=== PATIENT | female | born 1990 | race Caucasian/White ===

== ENCOUNTER 2017-10-30 11:47 | Emergency (ER) | payer OTHER ==
[~2017-10-30 11:47] MED LIST: ISOVUE-370 76%-LOCM 1 ML ONE
[2017-10-30 12:16] LABS: #Eosinphils 0.1 thou/uL (0.0-0.7); #Lymphocytes 2.2 thou/uL (1.20-3.40); #Monocytes 0.6 thou/uL (0.11-0.59); #Neutrophils 8.9 thou/uL (1.40-6.50); %Basophils 0.1 % (0.0-1.0); %Lymphocytes 18.3 % (21.0-51.0); %Monocytes 5.3 % (0.0-10.0); %Neutrophils 75.3 % (42.0-75.0); Hemoglobin 13.5 g/dL (12.0-16.0); Mean Corpuscular Hemoglobin 31.9 pg (27.0-31.0); Mean Corpuscular Volume 91.3 fl (81.0-99.0); Mean Platelet Volume 7.2 fL (7.4-10.4); Platelet Count 215 thou/uL (130-400); RBC Distribution Width 11.1 % (11.5-14.5); Red Blood Cell (RBC) Count 4.23 mill/uL (4.20-5.40); White Blood Cell (WBC) Count 11.8 thou/uL (4.8-10.8)
[2017-10-30] MEDS ORDERED: Ondansetron HCl/PF 4 MG/2 ML Vial ONE (12:33)
[2017-10-30] MEDS ORDERED: Morphine 4 MG/ML VIAL ONE ×2 (12:33→15:48)
[2017-10-30 12:34] LABS: ALT (SGPT) 20 U/L (8-55); AST (SGOT) 26 U/L (5-34); Albumin 3.9 g/dL (3.5-5.0); Alkaline Phosphatase 64 U/L (40-150); Anion Gap 9 mmol/L (10-20); BHCG - Serum Negative (NEGATIVE); BUN (Urea Nitrogen) 11 mg/dL (7.0-18.7); Bilirubin, Total 0.4 mg/dL (0.2-1.2); Calc. Creatinine Clearance 0 mL/min (70-130); Calcium 8.6 mg/dL (7.8-10.44); Carbon Dioxide 26 mmol/L (22-29); Chloride 108 mmol/L (98-107); Estimated GFR-MDRD Greater than 90; Globulin 3.3 g/dL (2.4-3.5); Glucose 103 mg/dL (70-105); Lipase 29 U/L (8-78); Potassium 3.9 mmol/L (3.5-5.1); Pregs Control Bar Appear? YES (CONTROL BAR); Protein, Total 7.2 g/dL (6.0-8.3); Sodium 139 mmol/L (136-145)
[2017-10-30 12:35] LABS: Pregs Control Background? CLEAR/WHITE (CLR/WHITE)
--- NOTE | 2017-10-30 13:07 | RAD ---
1 VIEW CHEST: Date 10/30/17 HISTORY: Trauma. Patient fell off horse. COMPARISON: None. FINDINGS: Normal cardiac silhouette. Pulmonary hilum and vessels are normal. Costophrenic angles are clear. No pneumothorax on this supine projection. No osseous abnormalities. IMPRESSION: No acute cardiopulmonary process. POS: [facility]
--- NOTE | 2017-10-30 13:50 | CT ---
CT CERVICAL SPINE WITHOUT CONTRAST: Date: 10/30/17 HISTORY: Patient fell off horse. Post-traumatic pain. COMPARISON: None. FINDINGS: There is appropriate alignment of the atlanto-occipital articulation. There is appropriate alignment of the lateral masses of C1 and C2. Odontoid process is also intact. Sagittal reformatted images demonstrate straightening of normal cervical lordosis, which may be due t o patient positioning, muscle spasm, or cervical collar. Current study is not tailored to assess for ligamentous injury. There is no prevertebral soft tissue swelling or epidural hematoma. No significant central canal sten osis or foraminal narrowing. Evaluation is limited by technique. Visualized soft tissue neck structures, upper mediastinum, and lung apices are unremarkable. Cervical spine vertebral body height is maintained. No cervical spine fracture. Heterogeneous appearance of the thyroid gland. IMPRESSION: 1. No evidence of fracture. 2. Straightening of normal cervical lordosis. If there is concern for ligamentous injury, consider M RI. 3. Heterogeneous thyroid gland. Nonemergent thyroid ultrasound. Results of the head CT and cervical spine CT study discussed with Dr. Stark on 10/30/17 at 1255 hours . CODE CR. POS: [facility]
--- NOTE | 2017-10-30 14:23 | CT ---
CT BRAIN: Date; 10/30/17 PROVIDED CLINICAL HISTORY: Bucked off horse. FINDINGS: The ventricular system is normal in size and morphology. There is no evidence for intracranial hemorr damian or mass effect. The extracranial soft tissues and osseous structures demonstrate an unremarkable CT appearance. IMPRESSION: No evidence for intracranial hemorrhage or mass effect. POS: [facility]
--- NOTE | 2017-10-30 14:26 | CT ---
CT CHEST AND ABDOMEN AND PELVIS WITH IV CONTRAST: Date: 10/30/17 PROVIDED CLINICAL HISTORY: Back pain status post fall from horse. FINDINGS: The heart, pericardium, and great vessels demonstrate no evidence for traumatic abnormality. Lungs ar e free of significant opacity. No pleural fluid or pneumothorax apparent. The solid abdominal organs demonstrate no evidence for traumatic abnormality. Punctate nonobstructing left renal calculus. No bowel dilatation, inflammatory fat stranding, free fluid, or free air apparent. Mild superior end plate compression fracture of L1. Mildly displaced right transverse process fractur e at L1. Vertebral body heights are otherwise preserved. Minimal kyphosis at the thoracolumbar juncti on. Thoracic and lumbar alignment appear otherwise normal. No additional fracture is evident. IMPRESSION: 1. Mild superior end plate compression fracture involving L1. 2. Mildly displaced right transverse process fracture at L1. 3. No additional evidence for traumatic abnormality involving the chest, abdomen, or pelvis. POS: [facility]
--- NOTE | 2017-10-30 16:13 | CON ---
This is Desean Mccain PA-C, dictating for Dr. Lenny King. DATE OF CONSULTATION: 10/30/2017 This is a 30-minute initial patient evaluation in which greater than 50% of the exam was spent counse ling and coordinating patient's care. Remainder of the exam was spent in review of patient's medical records and appropriate imaging studies. CHIEF COMPLAINT: Status post fall from a horse with L1 burst fracture. HISTORY OF PRESENT ILLNESS: Ms. Baptiste is a pleasant 27-year-old female who presents to [facility] for the above complaints. 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 S he states that at this time, she has no neck pain, no shoulder pain, only midline low back pain. She has no leg pain, no numbness or tingling in the legs and no weakness in any of the extremities. Rev iew of the patient's full cranial spinal imaging is negative except for an L1 fracture extending into the anterior and slightly into the middle columns at L1. She also has a right-sided L1 transverse p rocess fracture. Neurosurgery is asked to consult regarding this fracture. PHYSICAL EXAMINATION: GENERAL: The patient is awake, alert and appropriate. EXTREMITIES: She has full strength in the bilateral upper extremities, bilateral lower extremities w ith intact sensation to light touch throughout. She has no worrisome myelopathic features on exam in cluding negative Esparza's bilaterally and no increased tone. She has no tenderness to palpation temo ng the midline of the cervical spine and no pain with range of motion of the cervical spine. [facility]. IMPRESSION DIAGNOSIS: Status post fall from horse with L1 right transverse process fracture and L1 b urst fracture with no malalignment. PLAN: I discussed the patient's case and imaging with Dr. King. At this time, we will plan to fit the patient for a clamshell TLSO brace to be worn anytime she is out of bed. Prefer that she apply the brace when supine. Otherwise, the patient is neurologically intact and should not require any ty pe of neurosurgery at this time. We will arrange for followup in 2 weeks with upright AP lumbar spin e x-rays. Ample opportunity was given to the patient and her multiple family members to discuss thei r questions and concerns. They understand to call our office with anything additional. Otherwise, w e will set appropriate followup appointment outpatient. The patient is stable for discharge from our standpoint. Please call with any questions or changes in patient's neurologic status.
== END 2017-10-30 16:58 | disposition home or self-care (01) ==
LOC: ERS 11:47
DX: S32.019A Unspecified fracture of first lumbar vertebra, initial encounter for closed fracture (principal); E03.9 Hypothyroidism, unspecified; F41.9 Anxiety disorder, unspecified; Z79.899 Other long term (current) drug therapy; V80.010A Animal-rider injured by fall from or being thrown from horse in noncollision accident, initial encounter
CPT/HCPCS: 36415; 70450; 71045; 71260; 72125; 74177; 80053; 83690; 84703; 85025; 86850; 86900; 86901; 96361; 96374; 96375; 96376; G0390; J2270; J2405; L0190